=== PATIENT | female | born 1975 | race Caucasian/White ===

== ENCOUNTER → 2020-07-19 15:25 | Outpatient (CLI) | payer OTHER, SELFPAY ==
--- NOTE | ~2020-07-19 | MM_ITS ---
EXAMINATION: MM screening [facility] BI w odilia HISTORY: Screening mammogram TECHNIQUE: Craniocaudal and mediolateral oblique 3-D tomosynthesis images were obtained and synthetic 2-D images were generated. CAD analysis was submitted and interpreted. COMPARISON: 04/11/2019, 03/04/2018, 04/07/2016 BREAST PARENCHYMAL COMPOSITION: There are scattered areas of fibroglandular density. FINDINGS: There is no evidence of suspicious mass, calcification, or architectural distortion to sugg est malignancy in either breast. Decrease in breast size is related to interval weight loss. There guerra s been no suspicious interval change. IMPRESSION: 1. No mammographic evidence of malignancy. 2. Recommend routine screening mammography in one year. BI-RADS Category 1: Negative Reviewed, dictated and finalized at location A. ER JOINTER
== END ==
PROVIDERS: Visit Provider Nurse Practitioner
DX: Z12.31 Encounter for screening mammogram for malignant neoplasm of breast (principal)
CPT/HCPCS: 77063; 77067

== ENCOUNTER → 2021-10-04 16:08 | Outpatient (CLI) | payer BC, SELFPAY ==
--- NOTE | ~2021-10-04 | MM_ITS ---
EXAMINATION: MM screening [facility] BI w odilia HISTORY: Screening mammogram TECHNIQUE: Craniocaudal and mediolateral oblique 3-D tomosynthesis images were obtained and synthetic 2-D images were generated. CAD analysis was submitted and interpreted. COMPARISON: 07/2020, 04/11/2019, 03/12/2018 bilateral screening mammogram examinations BREAST PARENCHYMAL COMPOSITION: There are scattered areas of fibroglandular density. FINDINGS: There is no evidence of suspicious mass, calcification, or architectural distortion to sugg est malignancy in either breast. There has been no suspicious interval change. IMPRESSION: 1. No mammographic evidence of malignancy. 2. Recommend routine screening mammography in one year. BI-RADS Category 1: Negative Reviewed, dictated and finalized at location A.
== END ==
PROVIDERS: Visit Provider Obstetrics & Gynecology Gynecology
DX: Z12.31 Encounter for screening mammogram for malignant neoplasm of breast (principal)
CPT/HCPCS: 77063; 77067

== ENCOUNTER → 2022-04-05 14:51 | Outpatient (CLI) | payer BC, SELFPAY ==
--- NOTE | ~2022-04-05 | US_ITS ---
EXAMINATION: US pelvic complete DATE: 04/05/2022 15:13 INDICATION: ABN UTERINE BLEEDING TECHNIQUE: Multiple transabdominal sonographic images of the pelvis were obtained. COMPARISON: None. FINDINGS: Uterus: 9.8 x 4.8 x 5.7 cm. IUD, normally positioned within the uterus. Endometrial complex measures 5 mm. Right Ovary: 2.9 x 1.6 x 2.3 cm. Vascular flow is present. Left Ovary: 3.2 x 1.9 x 1.8 cm. Vascular flow is present. There is no free fluid in the pelvis. IMPRESSION: IUD, in good position. Otherwise unremarkable pelvic sonogram findings. Reviewed, dictated and finalized at location K.
== END ==
PROVIDERS: PCP Nurse Practitioner; Visit Provider Nurse Practitioner
DX: N93.8 Other specified abnormal uterine and vaginal bleeding (principal); Z97.5 Presence of (intrauterine) contraceptive device
CPT/HCPCS: 76856

== ENCOUNTER → 2022-06-10 10:26 | Outpatient (CLI) | payer BC, SELFPAY ==
--- NOTE | ~2022-06-10 | MR_ITS ---
EXAMINATION: MR knee RT wo con DATE: 06/10/2022 11:23 INDICATION: Anterior and medial right knee pain. TECHNIQUE: Magnetic resonance imaging (MRI) of the right knee was performed without intravenous contr ast. Sequences included axial PD-weighted FS FSE, coronal PD-weighted FSE and PD-weighted FS FSE, sag ittal PD-weighted FSE, and sagittal T2-weighted FS FSE. COMPARISON: Right knee radiographs 04/14/2022 FINDINGS: Medial compartment: Medial meniscus is normal. There is shallow partial-thickness cartilage loss of tibial condyle. There is partial-thickness cartilage loss of femoral condyle, deep at the medial articular surface. Osteop hytes are noted. Lateral compartment: Lateral meniscus is normal. There is cartilage surface irregularity of tibial condyle. There is an os teochondral lesion of lateral femoral condyle involving the central articular surface with cortical i ndentation, subchondral cysts, and partial thickness cartilage loss. There is deep partial thickness cartilage loss of femoral condyle involving the central articular surface. Osteophytes are noted. Patellofemoral compartment: There is full-thickness cartilage loss of patellar lateral facet with intra-articular osteophyte. The re is shallow partial-thickness cartilage loss of patellar lateral facet. There is partial-thickness cartilage loss of trochlea. There is full-thickness cartilage fissuring of central and lateral trochl ea. Marginal osteophytes are noted. Ligaments and tendons: There is a partial tear of anterior cruciate ligament. Posterior cruciate ligament is normal. There a re changes of prior sprains of medial collateral ligament and fibular collateral ligament characteriz ed increased signal intensity proximally. There is mild patellar tendinopathy. Fluid: There is a moderate-sized knee joint effusion. There is trace fluid in a Davila's cyst. There is mild prepatellar and superficial infrapatellar bursitis. IMPRESSION: 1. Severe chondrosis of patellofemoral compartment and moderate chondrosis of medial and lateral comp artments. 2. Partial tear of anterior cruciate ligament. 3. Moderate-sized knee joint effusion. Reviewed, dictated and finalized at location A. IDENTIAL SECRETARY IMPRESSION: 1. Severe chondrosis of patellofemoral compartment and moderate chondrosis of m edial and lateral compartments. 2. Partial tear of anterior cruciate ligament. 3. Moderate-sized knee joint effusion.
== END ==
PROVIDERS: PCP Physician Assistant Medical; Visit Provider Physician Assistant Medical
DX: M25.561 Pain in right knee (principal); M22.2X1 Patellofemoral disorders, right knee; S83.511A Sprain of anterior cruciate ligament of right knee, initial encounter; M25.461 Effusion, right knee
CPT/HCPCS: 73721

== ENCOUNTER 2022-10-13 00:34 | Day surgery (SDC) | payer BC, SELFPAY ==
[2022-09-29 14:12] VITALS: BMI 32.2
--- NOTE | 2022-10-12 14:15 | PM.HPGS ---
History of Present Illness History of Present Illness Consent: Risks, benefits, and alternatives have been discussed and questions answered. Patient agrees to proceed with procedure. Chief complaint: neoplasm screening Narrative: Nicolasa Alva is a 47 year old female Referred for colon cancer screening Review of Systems Review of Systems: All systems reviewed & are unremarkable except as noted in HPI and below PMFSH Past Medical History Medical History Acute otitis externa Essential (primary) hypertension Fall Fatigue Hyperlipidemia Morbid (severe) obesity due to excess calories Tailbone injury URI, acute Family History Family History Father Hypertension Mother Hypertension Family history of diabetes mellitus in first degree relative Sibling Hypertension Social History Social History Smoking status: Never smoker Alcohol intake: never Alcohol use details: rarely Substance use: never Substance use type: does not use Living arrangements: with family Occupation/Education: occupation Gender identity (if verbalized by the patient): Female Sexual Orientation (if Verbalized by the Patient): Straight or Heterosexual Spiritual care concerns: No Meds Home Medications and Allergies Home Medications Medication Instructions Recorded Confirmed Type losartan 50 mg tablet 50 mg PO DAILY #90 tabs 05/26/22 10/13/22 Rx Allergies Allergy/AdvReac Type Severity Reaction Status Date / Time No Known Allergies Allergy Mild Verified 10/13/22 08:05 Exam Resp: Auscultation: clear to auscultation bilaterally Cardio: Rate: regular rate Rhythm: regular rhythm GI: GI Palp: Yes Soft to palpation and No Tenderness to palpation present (GI) Assessment and Plan Assessment and plan (1) Colon cancer screening: Code(s): Z12.11 - Encounter for screening for malignant neoplasm of colon Status: Acute Assessment and Plan: Colonoscopy with possible biopsy or polypectomy or cautery or injection of substances.
[2022-10-13 08:08] VITALS: BP 154/73; PULSE 57; RESP 16; TEMP 36.7; O2SAT 100
[2022-10-13] MEDS: LACTATED RINGERS 1,000 ML 150 ML IV CONT (08:20)
--- NOTE | 2022-10-13 08:24 | P.PNAN_ITS ---
Anes - Initial Pre Proc Eval Procedure: Operation Date: 10/13/22 09:00 Proposed Procedures p Screening Colonoscopy - Theo Verdugo MD Date/Time: 10/13/22 08:24 Surgeon: Theo Verdugo MD Pre Op Diagnosis: neoplasm screening Patient Data Age: 47 Gender: F Height: 1.75 m Weight: 97 kg Last Vital Signs Temp 36.7 C 10/13/22 08:08 Pulse 57 L 10/13/22 08:08 Resp 16 10/13/22 08:08 BP 154/73 H 10/13/22 08:08 Pulse Ox 100 10/13/22 08:08 O2 Del Method Room Air 10/13/22 08:08 Allergies Allergy/AdvReac Type Severity Reaction Status Date / Time No Known Allergies Allergy Mild Verified 10/13/22 08:05 Home Medications Medication Instructions Recorded Confirmed Type losartan 50 mg tablet 50 mg PO DAILY #90 tabs 05/26/22 10/13/22 Rx Patient hx anesthesia problems: none Family hx anesthesia problems: none Results Review: All pre-operative results and documents have been reviewed as part of the pre-operative evaluation. COUNTS INCLUDE 234 BEDS AT THE [facility] Past Medical History Medical History Acute otitis externa Essential (primary) hypertension Fall Fatigue Hyperlipidemia Morbid (severe) obesity due to excess calories Tailbone injury URI, acute Family History Family History Father Hypertension Mother Hypertension Family history of diabetes mellitus in first degree relative Sibling Hypertension Social History Social History Smoking status: Never smoker Alcohol intake: never Alcohol use details: rarely Substance use: never Substance use type: does not use Living arrangements: with family Occupation/Education: occupation Gender identity (if verbalized by the patient): Female Sexual Orientation (if Verbalized by the Patient): Straight or Heterosexual Spiritual care concerns: No Anes - Eval Final PreProcedure Day of Procedure 10/13/22 08:24 Patient weight: overweight Heart: regular rate and rhythm Lungs: clear to auscultation Airway: Mallampati scale class II Neurological: alert and oriented Last oral intake: >/= 8 hours ASA classification: II Emergent: no Anesthetic plan: proceed Anesthesia type and monitoring: general GIVS and standard monitoring Results Review: All pre-operative results and documents have been reviewed as part of the pre- operative evaluation. Informed Consent: The patient's anesthetic plan and its attendant risks and benefits were discussed with the patient/family/POA. Questions were solicited and answers provided to the satisfaction of the patient/family/POA.
[2022-10-13 09:14] VITALS: BP 124/53; PULSE 58; RESP 17; O2SAT 100
[2022-10-13 09:24] VITALS: BP 121/56; PULSE 57; RESP 20; O2SAT 100
[2022-10-13 09:34] VITALS: BP 126/72; PULSE 66; RESP 18; O2SAT 100
== END 2022-10-13 09:41 | disposition home or self-care (01) ==
PROVIDERS: PCP Physician Assistant Medical; Visit Provider Internal Medicine Gastroenterology
PROC: 0DJD8ZZ Inspection of Lower Intestinal Tract, Via Natural or Artificial Opening Endoscopic (ICD-10-PCS; CPT 45378; principal; 2022-10-13 09:00)
DX: Z12.11 Encounter for screening for malignant neoplasm of colon (principal); D12.2 Benign neoplasm of ascending colon; I10 Essential (primary) hypertension
CPT/HCPCS: 45380; 88305; J2704; J7120

== ENCOUNTER → 2022-11-17 15:17 | Outpatient (CLI) | payer BC, SELFPAY ==
--- NOTE | ~2022-11-17 | MM_ITS ---
EXAMINATION: MM screening [facility] BI w odilia HISTORY: Screening mammogram TECHNIQUE: Craniocaudal and mediolateral oblique 3-D tomosynthesis images were obtained and synthetic 2-D images were generated. CAD analysis was submitted and interpreted. COMPARISON: 10/04/2021, 07/19/2020, 04/11/2019 BREAST PARENCHYMAL COMPOSITION: There are scattered areas of fibroglandular density. FINDINGS: No suspicious mass, calcification, or architectural distortion are identified in either brittney ast to suggest malignancy. There has been no suspicious interval change. IMPRESSION: 1. No mammographic evidence of malignancy. 2. Recommend routine screening mammography in one year. BI-RADS Category 1: Negative Reviewed, dictated and finalized at location A.
== END ==
PROVIDERS: PCP Nurse Practitioner; Visit Provider Nurse Practitioner
DX: Z12.31 Encounter for screening mammogram for malignant neoplasm of breast (principal)
CPT/HCPCS: 77063; 77067

== ENCOUNTER → 2023-04-13 09:45 | Outpatient (CLI) | payer BC, SELFPAY ==
--- NOTE | ~2023-04-13 | US_ITS ---
EXAMINATION: US pelvic complete DATE: 04/13/2023 10:04 INDICATION: Pelvic pain Comparison:04/05/2022 TECHNIQUE: Multiple transabdominal sonographic images of the pelvis performed. FINDINGS: The uterus measures 11.3 x 4.7 x 5.5 cm. There is an IUD present in the in the endometrium. The endometrial complex measures 5.5 mm. The right ovary measures 4.5 x 3.2 x 4.1 cm and the left ovary measures 4.6 x 1.7 x 3.8 cm. There is a 2.7 cm right ovarian cyst. There are small follicles in each ovary. Normal doppler signal in both o varies. There is no free fluid in the pelvis. There are no abnormal masses seen on either side. IMPRESSION: 1. Right ovarian cyst measuring 2.7 cm. 2: IUD in expected position in the endometrium. Reviewed, dictated and finalized at location B.
== END ==
PROVIDERS: PCP Nurse Practitioner; Visit Provider Nurse Practitioner
DX: R10.2 Pelvic and perineal pain (principal); N83.201 Unspecified ovarian cyst, right side; N83.202 Unspecified ovarian cyst, left side; Z97.5 Presence of (intrauterine) contraceptive device
CPT/HCPCS: 76856

== ENCOUNTER 2023-06-05 15:15 | Outpatient (CLI) | payer BC, SELFPAY ==
--- NOTE | ~2023-06-05 | US_ITS ---
EXAMINATION: US pelvic complete DATE: 06/05/2023 15:38 INDICATION: Follow-up right ovarian cyst Comparison:Ultrasound dated 04/13/2023 TECHNIQUE: Multiple transabdominal sonographic images of the pelvis performed. FINDINGS: The uterus measures 9.2 x 5.3 x 5.8 cm. IUD is present in the endometrium. The endometrial complex measures 7 mm. The right ovary measures 2.4 x 1.5 x 2.2 cm and the left ovary measures 2.6 x 1.2 x 1.9 cm. There ar e small follicles in each ovary. Normal doppler signal in both ovaries. There is no free fluid in the pelvis. There are no abnormal masses seen on either side. IMPRESSION: 1. Unremarkable pelvic ultrasound. Reviewed, dictated and finalized at location L. THCARE RECEPTIONIST
== END 2023-06-05 15:16 ==
LOC: MICIMG 15:16
PROVIDERS: PCP Obstetrics & Gynecology Gynecology; Visit Provider Obstetrics & Gynecology Gynecology
DX: N83.201 Unspecified ovarian cyst, right side (principal)
CPT/HCPCS: 76856

== ENCOUNTER 2023-11-20 15:52 | Outpatient (CLI) | payer BC, SELFPAY ==
--- NOTE | ~2023-11-20 | MM_ITS ---
EXAMINATION: MM screening [facility] BI w odilia HISTORY: Screening mammogram TECHNIQUE: Craniocaudal and mediolateral oblique 3-D tomosynthesis images were obtained and synthetic 2-D images were generated. CAD analysis was submitted and interpreted. COMPARISON: 11/17/2022, 10/04/2021 bilateral screening mammogram examinations BREAST PARENCHYMAL COMPOSITION: There are scattered areas of fibroglandular density. FINDINGS: There is no evidence of suspicious mass, calcification, or architectural distortion to sugg est malignancy in either breast. There has been no suspicious interval change. IMPRESSION: 1. No mammographic evidence of malignancy. 2. Recommend routine screening mammography in one year. BI-RADS Category 1: Negative Reviewed, dictated and finalized at location B.
== END 2023-11-20 15:53 ==
LOC: MICIMG 15:55
PROVIDERS: PCP Obstetrics & Gynecology Gynecology; Visit Provider Obstetrics & Gynecology Gynecology
DX: Z12.31 Encounter for screening mammogram for malignant neoplasm of breast (principal)
CPT/HCPCS: 77063; 77067

== ENCOUNTER 2024-11-21 15:46 | Outpatient (CLI) | payer BC, SELFPAY ==
--- NOTE | ~2024-11-21 | MM_ITS ---
EXAMINATION: MM screening [facility] BI w odilia HISTORY: Screening TECHNIQUE: Craniocaudal and mediolateral oblique 3-D tomosynthesis images were obtained and synthetic 2-D images were generated. CAD analysis was submitted and interpreted. COMPARISON: Comparison to multiple prior studies sequentially, with oldest reviewed study dated 03/12. BREAST PARENCHYMAL COMPOSITION: Not dense: There are scattered areas of fibroglandular density. FINDINGS: The right breast is stable without evidence for malignancy. There is a new small focal mass upper inner quadrant of the left breast, anterior third. IMPRESSION: 1. New small left breast mass, upper inner quadrant, anterior third. 2. Additional mammographic views and possible breast ultrasound are recommended. BI-RADS Category 0: Incomplete: Needs additional imaging evaluation. Reviewed, dictated and finalized at location A. IMPRESSION: 1. New small left breast mass, upper inner quadrant, anterior third. 2. Additional mammographic views and possible breast ultrasound are recommended . BI-RADS Category 0: Incomplete: Needs additional imaging evaluation.
== END 2024-11-21 15:47 | disposition home or self-care (01) ==
LOC: MICIMG 15:47
PROVIDERS: PCP Physician Assistant Medical; Visit Provider Obstetrics & Gynecology Gynecology
DX: Z12.31 Encounter for screening mammogram for malignant neoplasm of breast (principal); R92.8 Other abnormal and inconclusive findings on diagnostic imaging of breast
CPT/HCPCS: 77063; 77067

== ENCOUNTER 2024-12-12 10:47 | Outpatient (CLI) | payer BC, SELFPAY ==
--- NOTE | ~2024-12-12 | MMUS_ITS ---
EXAMINATION: MM diagnostic danielle LT w odilia, US breast LT complete HISTORY: Follow-up left breast mass. TECHNIQUE: Additional 3-D tomosynthesis images of the left breast were performed and synthetic 2-D im ages were generated. CAD analysis was submitted and interpreted. High resolution breast ultrasound wa s performed. COMPARISON: Comparison to multiple prior studies sequentially, with oldest reviewed study dated 04/11. BREAST PARENCHYMAL COMPOSITION: Not dense: There are scattered areas of fibroglandular density. FINDINGS: MAMMOGRAPHIC FINDINGS: There is a persistent mass medial aspect of the left breast at approximately 9:00 position, anterior third. There are no suspicious calcifications or architectural distortion. ULTRASOUND: Complete US of all 4 quadrants of the left breast/s and retroareolar region was reviewed. At 10:00, 3 cm from the nipple there is a 5 mm cyst, likely corresponding to the mammographic finding. In the hernandez bareolar location there is a 3 mm cyst. No suspicious sonographic abnormalities to suggest malignancy . IMPRESSION: 1. No evidence for malignancy in the left breast. 2. Routine yearly screening mammogram and regular clinical breast examination are recommended. BI-RADS Category 2: Benign finding(s). Reviewed, dictated and finalized at location A. IMPRESSION: 1. No evidence for malignancy in the left breast. 2. Routine yearly screening mammogram and regular clinical breast examination a re recommended. BI-RADS Category 2: Benign finding(s).
--- OUTSIDE RECORDS SUMMARY | 2024-12-12 10:59 | XMS_ITS | Encounter Summary ---
Author Organization [facility] Address [address] [place] [address] Care Team Providers Care Unix System Administrator Name Role Phone Isela Villaseñor Primary Care Provider Encounter Details Date Type Department Care Team (Late st Contact Info) Description 12/23/[address] [facility] [address] [facility] [place] [address] Avery Salas MD [address] [facility] [place] [address] Social History Tobacco Use Types Packs/Day Years Used Date Smoking Tobacco: Never Assessed Comments Unknown Sex and Gender Information Value Date Recorded Sex Assigned at Not on file Legal Sex Female 6:46 AM CDT Gender Identity Not on file Sexual Orientation Not on file documented as of this encounter Plan of Treatment Not on file documented as of this encounter Procedures Procedure Name Priority Date/Time Associated Diagnosis Comments DERMATOPATHOLOGY Routine 12/22/2021 3:33 AM CDT documented in this encounter Results * DERMATOPATHOLOGY (12/22/2021 3:33 AM CDT) Case Report Dermatopathology Report Case: [id number] Authorizing Provider: Avery Salas MD Collected: 12/22/2021 03:33 AM Ordering Location: [facility] Received: 12/23/2021 07:33 AM Pathologist: Abigail Comer MD Specimen: Skin, left mid back 2 11:16 AM CDT DERMATOPATHOLOGY LABORATORY Final Diagnosis Specimen A. SKIN, left mid back: INTRADERMAL MELANOCYTIC NEVUS (D22.5) 2 11:16 AM CDT DERMATOPATHOLOGY LABORATORY at 1116 CDT Clinical History Irritated Nevus vs. Other Path# [id number] 2 11:16 AM CDT DERMATOPATHOLOGY LABORATORY Gross Description Specimen A: Received is one formalin filled container labeled with the patient's name and designated left mid back. The specimen consists of a shave biopsy measuring [id number]. Jar 0. 2 11:16 AM CDT DERMATOPATHOLOGY LABORATORY Microscopic Description Specimen A. SKIN, left mid back: There are nests of cytologically bland melanocytes within the dermis that mature with depth. 2 11:16 AM CDT DERMATOPATHOLOGY LABORATORY Disclaimer An external and internal positive and negative controls are appropriate for the histochemical, immunohistochemical and immunofluorescence stain(s) in this case (if any), except where stated explicitly. The performance characteristics of the stain(s) cited in this report were developed and its performance characteristic determined by the Dermatopathology Laboratory at [facility], directed by Dr. Prosper Toney. These tests need not be, and therefore are not, approved by the [place] Food and Drug Administration. The tests are used for clinical purposes. Billing Codes Specimen Charges Stain Charges 64169 1 2 11:16 AM CDT DERMATOPATHOLOGY LABORATORY Embedded Images 2 11:16 AM CDT DERMATOPATHOLOGY LABORATORY Pathology/Cytolo gy TISSUE SPECIMEN FROM SKIN / Unknown 12/22/2021 3:33 AM CDT 12/23/2021 7:33 AM CDT us Avery Salas MD LAB - PATHOLOGY/CYTOLOGY ORDER MIRIAN Final Result DERMATOPATHOLOGY LABORATORY [facility] - Department of Dermatology [facility] Medicine [address] [place] [address], [address] [phone] documented in this encounter Visit Diagnoses Not on filedocumented in this encounter Care Teams Unix System Administrator Relationship Specialty Start Date End Date Isela Villaseñor PA [address] [place] [id number] PCP - General 11/03/22 documented as of this encounter
--- OUTSIDE RECORDS SUMMARY | 2024-12-12 10:59 | XMS_ITS | Referral Summary ---
Author Organization [facility] Address [facility] [place] [address] Care Team Providers Care Director Of Market Intelligence Name Role Phone Isela Villaseñor Primary Care Provider [phone] Allergies No known active allergies Medications losartan (COZAAR) 50 mg tablet Take 1 tablet (50 mg total) by mouth daily 2 Active levonorgestreL (MIRENA) IUD by intrauterine route Active spironolactone (ALDACTONE) 100 mg tablet 4 Active meloxicam (MOBIC) 15 mg tablet Take 1 daily for 5-7 days, then take 1 daily as needed. 30 tablet 1 4 Active Active Problems Problem Noted Date Diagnosed Date Acute pain of right knee 06/22/2022 Social History Tobacco Use Types Packs/Day Years Used Date Smoking Tobacco: Never Cigarettes Passive Smoke Exposure: Never Smokeless Tobacco: Never Tobacco Cessation:Counseling Given: Not Answered Personal Safety Answer Date Recorded Getting School Help Needed Not on file 07/22 Comments Unknown Sex and Gender Information Value Date Recorded Sex Assigned at Not on file Legal Sex Female 9:47 AM KINDERGARTEN INSTRUCTIONAL ASSISTANT Gender Identity Not on file Sexual Orientation Not on file Last Filed Vital Signs Vital Sign Reading Time Taken Comments Blood Pressure - - Pulse - - Temperature - - Respiratory Rate - - Oxygen Saturation - - Inhaled Oxygen Concentration - - Weight 94.3 kg (208 lb) 06/22/2022 7:55 AM KINDERGARTEN INSTRUCTIONAL ASSISTANT Height 175.3 cm (5' 9) 06/22/2022 7:55 AM KINDERGARTEN INSTRUCTIONAL ASSISTANT Body Mass Index 30.72 06/22/2022 7:55 AM KINDERGARTEN INSTRUCTIONAL ASSISTANT Plan of Treatment Not on file Insurance ANTHEM ACCESS CHOICE ANTHEM ACCESS CHOICE Care Teams Director Of Market Intelligence Relationship Specialty Start Date End Date Isela Villaseñor PA [address] [place] [id number] PCP - General Family Practice 06/14/22
--- OUTSIDE RECORDS SUMMARY | 2024-12-12 10:59 | XMS_ITS | Clinical Summary ---
Author Organization [facility] Address [address] [place] [id number] Care Team Providers Care Nicker And Breaker Name Role Phone Isela Villaseñor Primary Care Provider [phone] Allergies No known active allergies Medications losartan [...] Date Acute pain of right knee 06/22/2022 Medical History Medical History Date Comments Hypertension 2004 Family History Medical History Relation Name Comments Hypertension Brother Taj Knapp Hypertension Father Lei Knapp Memory loss Maternal Grandmother Cristina Gerber Diabetes Mother Shannan Knapp Relation Name Status Comments Brother Taj Guardadosel Father Lei Guardadosel Maternal Grandmother Cristina Gerber Mother Shannan Knapp Social History Tobacco Use Types Packs/Day Years Used Date Smoking Tobacco: Never Cigarettes Passive Smoke Exposure: Never Smokeless Tobacco: Never Tobacco Cessation:Counseling Given: Not Answered Personal Safety Answer Date Recorded Getting School Help Needed Not on file 07/22 Comments Unknown Sex and Gender Information Value Date Recorded Sex Assigned at Not on file Legal Sex Female 9:47 AM CORE MICROARCHITECT Gender Identity Not on file Sexual Orientation Not on file Obstetrics History Last Filed Vital Signs Vital Sign Reading Time Taken Comments Blood Pressure - - Pulse - - Temperature - - Respiratory Rate - - Oxygen Saturation - - Inhaled Oxygen Concentration - - Weight 94.3 kg (208 lb) 06/22/2022 7:55 AM CORE MICROARCHITECT Height 175.3 cm (5' 9) 06/22/2022 7:55 AM CORE MICROARCHITECT Body Mass Index 30.72 06/22/2022 7:55 AM CORE MICROARCHITECT Plan of Treatment Health Maintenance Due Date Last Done Comments Breast Cancer Screening-Mammogram 1976 Cervical Cancer Screening 1976 Colon Cancer Screening-Colonoscopy 1976 Depression Screening 1976 Hepatitis C Screening 1976 DTaP/Tdap/Td Vaccine (1 - Tdap) 1987 Hepatitis B Screening 1994 Regular Well Visit/Exam 18-64 1994 Covid-19 Vaccine (2023-2 5 season) 2024 06/30/2021, 10/18/2020, 09/26/2020 Influenza Vaccine (Season Ended) 2025 04/18/2022, 04/20/2021 Pneumococcal vaccine <65 Aged Out No longer eligible based on patient's age to complete this topic Insurance [employer] Care Teams Nicker And Breaker Relationship Specialty Start Date End Date Isela Villaseñor PA [address] [place] [id number] PCP - General Family Practice 06/14/22
--- OUTSIDE RECORDS SUMMARY | 2024-12-12 10:59 | XMS_ITS | Clinical Summary ---
Author Organization [facility] [employer] Address [address] [facility] [place] [address] Care Team Providers Care Centrifuge Operator Name Role Phone Isela Villaseñor Primary Care Provider Source Comments [facility],non-owned Affiliates and Associated Physician Practices is amultiple site organization consisting of ambulatory clinics and hospital sitesin [place], [place], [place] and [place]. This disclosure is being madepursuant to the Care Everywhere program and may not contain all information available regarding this patient. Last updated 18.[facility] [employer] Social History Tobacco Use Types Packs/Day Years Used Date Smoking Tobacco: Never Assessed Comments Unknown Sex and Gender Information Value Date Recorded Sex Assigned at Not on file Legal Sex Female 6:46 AM CDT Gender Identity Not on file Sexual Orientation Not on file Plan of Treatment Health Maintenance Due Date Last Done Comments COLOGUARD (AGES 45-75) - COL ON CA SCREENING 1976 COLON MONITORING 1976 COLONOSCOPY - COLON CA SCREENING 1976 CT COLONOGRAPHY - COLON CA SCREENING 1976 Colorectal Cancer Screening 1976 FIT - COLON CA SCREENING 1976 FLEX SIG - COLON CA SCREENING 1976 LIPID TESTING 1976 MAMMOGRAM 1976 PAP SMEAR 1976 HIV SCREENING 1991 HEPATITIS C SCREENING 08/19/1994 DTAP/TDAP/TD VACCINES (1 - Tdap) 1995 HEPATITIS B VACCINE (1 of 3 - 19+ 3-dose series) 1995 COVID-19 VACCINE ( - 2023-2 5 season) 2024 DEPRESSION SCREENING 07/16/2024 INFLUENZA VACCINE (Season Ended) 2025 ZOSTER VACCINE (1 of 2) 2026 HIB VACCINE Aged Out No longer eligi ble based on patient's age to complete this topic HPV VACCINE Aged Out No longer eligi ble based on patient's age to complete this topic MENINGOCOCCAL (Group B) VACC INE SHARED DECISION-MAKING Aged Out No longer eligibl e based on patient's age to complete this topic MENINGOCOCCAL GROUPS A/C/Y/W VACCINE Aged Out No longer eligible b ased on patient's age to complete this topic PNEUMOCOCCAL VACCINE Aged Out No long er eligible based on patient's age to complete this topic Insurance Care Teams Centrifuge Operator Relationship Specialty Start Date End Date Isela Villaseñor PA [address] [place] [phone] PCP - General 11/03/22
--- OUTSIDE RECORDS SUMMARY | 2024-12-12 10:59 | XMS_ITS | Clinical Summary ---
Author Organization [facility] Address [address] [place] [phone] Care Team Providers Care Specialized Language Instructor Name Role Phone Unavailable Primary Care Provider Unavailabl e Immunizations Immunization Administration Dates Next Due INFLUENZA VACCINE QUADRIVALENT 6 MOS UP PF IM ,04/20/2021 Social History Tobacco Use Types Packs/Day Years Used Date Smoking Tobacco: Never Assessed Comments Unknown Sex and Gender Information Value Date Recorded Sex Assigned at Not on file Legal Sex Female 4:42 PM CDT Gender Identity Not on file Sexual Orientation Not on file Plan of Treatment Health Maintenance Due Date Last Done Comments DTAP/TDAP/TD VACCINES (1 - Tdap) 1995 HEPATITIS B VACCINES (1 of 3 - 19+ 3-dose series) 1995 HPV/Cotest (21-29) 1997 CERVICAL CANCER SCREENING 2006 HPV/Cotest (30-65) 2006 PAP SMEAR 2006 BREAST CANCER SCREENING 2016 COLORECTAL SCREENING 2021 Colorectal Cancer Screening 2021 FIT-DNA Q 3 years 2021 FIT/FOBT Q 1 year 2021 Flex Sig/CT Colonography Q 5 years 2021 INFLUENZA VACCINE (#1) 2024 04/18/2022, 2020 Insurance [employer] [facility]
== END 2024-12-12 10:48 | disposition home or self-care (01) ==
LOC: ANHIMG 10:49
PROVIDERS: PCP Physician Assistant Medical; Visit Provider Obstetrics & Gynecology Gynecology
DX: N63.22 Unspecified lump in the left breast, upper inner quadrant (principal)
CPT/HCPCS: 76641; 76642; 77061; 77065; G0279

== ENCOUNTER 2024-12-31 08:29 | Outpatient (CLI) | payer BC, SELFPAY ==
--- NOTE | 2024-12-31 08:36 | ECG_ITS ---
Test Date: 2024-12-31 08:59:09 Measurements Intervals [place] Rate: 58 P: -10 WV: 148 QRS: 1 QRSD: 107 T: 11 QT: 419 QTc: 412 Interpretive Statements SINUS BRADYCARDIA BORDERLINE R WAVE PROGRESSION, ANTERIOR LEADS CONSIDER INFERIOR INFARCT, AGE INDETERMINATE ABNORMAL ECG No previous ECG available for comparison Electronically Signed On 12-31-2024 09:08:25 CDT by Mj Rahman D.O.
--- OUTSIDE RECORDS SUMMARY | 2024-12-31 08:51 | XMS_ITS | Clinical Summary ---
Author Organization [facility] Address [address] [place] [phone] Care Team Providers Care Attendant Honor Bar Name Role Phone Unavailable Primary Care Provider [...] INFLUENZA VACCINE (#1) 2024 04/18/2022, 2020 Insurance [employer] [facility]
--- OUTSIDE RECORDS SUMMARY | 2024-12-31 08:51 | XMS_ITS | Clinical Summary ---
Author Organization [facility] Address [address] [facility] [place] [address] Care Team Providers Care Mounted Police Officer Name Role Phone Isela Villaseñor Primary Care Provider Source Comments [facility],non-owned Affiliates and Associated Physician Practices is amultiple site organization consisting of ambulatory clinics and hospital sitesin [place], [place], [place] and [place]. This disclosure is being madepursuant to the Care Everywhere program and may not contain all information available regarding this patient. Last updated 18.[facility] Social History Tobacco Use Types Packs/Day Years [...] to complete this topic Insurance Care Teams Mounted Police Officer Relationship Specialty Start Date End Date Isela Villaseñor PA [address] [place] [phone] PCP - General 11/03/22
--- OUTSIDE RECORDS SUMMARY | 2024-12-31 08:51 | XMS_ITS | Referral Summary ---
Author Organization [facility] Address [facility] [place] [address] Care Team Providers Care Prosthetics Assistant Name Role Phone Isela Villaseñor Primary Care Provider [phone] Allergies No known active allergies Medications losartan [...] on file Legal Sex Female 9:47 AM TOE STRIPPER Gender Identity Not on file Sexual Orientation Not on file Last Filed Vital Signs Vital Sign Reading Time Taken Comments Blood Pressure - - Pulse - - Temperature - - Respiratory Rate - - Oxygen Saturation - - Inhaled Oxygen Concentration - - Weight 94.3 kg (208 lb) 06/22/2022 7:55 AM TOE STRIPPER Height 175.3 cm (5' 9) 06/22/2022 7:55 AM TOE STRIPPER Body Mass Index 30.72 06/22/2022 7:55 AM TOE STRIPPER Plan of Treatment Not on file Insurance [employer] ACCESS CHOICE ANTHEM ACCESS CHOICE Care Teams Prosthetics Assistant Relationship Specialty Start Date End Date Isela Villaseñor PA [address] [place] [phone] PCP - General Family Practice 06/14/22
--- OUTSIDE RECORDS SUMMARY | 2024-12-31 08:52 | XMS_ITS | Encounter Summary ---
Author Organization [facility] Address [address] [facility] [place] [address] Care Team Providers Care Application Technician Name Role Phone Isela Villaseñor Primary Care Provider Encounter Details Date Type Department Care Team (Late st Contact Info) Description 12/23/2021 Lab Requisition [facility] [address] [facility], [place] [address] Avery Salas MD [address] [facility] [place] [address] Social History Tobacco Use Types [...] AM CDT) Case Report Dermatopathology Report Case: [id number] Authorizing Provider: Avery Salas MD Collected: 12/22/2021 03:33 AM Ordering Location: [facility] Received: 12/23/2021 07:33 AM Pathologist: Abigail Comer MD Specimen: Skin, left mid back 2 11:16 AM CDT DERMATOPATHOLOGY LABORATORY Final Diagnosis Specimen A. SKIN, left mid back: INTRADERMAL MELANOCYTIC NEVUS (D22.5) 2 11:16 AM CDT DERMATOPATHOLOGY LABORATORY at 1116 CDT Clinical History Irritated Nevus vs. Other Path# [id number] 2 11:16 AM CDT DERMATOPATHOLOGY LABORATORY Gross Description Specimen A: Received is one formalin filled container labeled with the patient's name and designated left mid back. The specimen consists of a shave biopsy measuring [id number]. Jar 0. 2 11:16 AM CDT DERMATOPATHOLOGY [...] characteristic determined by the Dermatopathology Laboratory at [facility], directed by Dr. Prosper Toney. These tests need not be, and therefore are not, approved by the [place] Food and Drug Administration. The tests are used for clinical purposes. Billing Codes Specimen Charges Stain Charges 27502 1 2 11:16 AM CDT DERMATOPATHOLOGY LABORATORY Embedded Images 2 11:16 AM CDT DERMATOPATHOLOGY LABORATORY Pathology/Cytolo gy TISSUE SPECIMEN FROM SKIN / Unknown 12/22/2021 3:33 AM CDT 12/23/2021 7:33 AM CDT us Avery Salas MD LAB - PATHOLOGY/CYTOLOGY ORDER MIRIAN Final Result DERMATOPATHOLOGY LABORATORY [facility] - Department of Dermatology [facility] Medicine [address] [place] [address], [address] [phone] documented in this encounter Visit Diagnoses Not on filedocumented in this encounter Care Teams Application Technician Relationship Specialty Start Date End Date Isela Villaseñor PA [address] [place] [phone] PCP - General 11/03/22 documented as of this encounter
--- OUTSIDE RECORDS SUMMARY | 2024-12-31 08:52 | XMS_ITS | Clinical Summary ---
Author Organization [facility] Address [address] [place] [address] Care Team Providers Care School Bus Mechanic Name Role Phone Isela Villaseñor Primary Care Provider [phone] Allergies No known active allergies Medications losartan [...] on file Legal Sex Female 9:47 AM COUNSELING SERVICES DIRECTOR Gender Identity Not on file Sexual Orientation Not on file Obstetrics History Last Filed Vital Signs Vital Sign Reading Time Taken Comments Blood Pressure - - Pulse - - Temperature - - Respiratory Rate - - Oxygen Saturation - - Inhaled Oxygen Concentration - - Weight 94.3 kg (208 lb) 06/22/2022 7:55 AM COUNSELING SERVICES DIRECTOR Height 175.3 cm (5' 9) 06/22/2022 7:55 AM COUNSELING SERVICES DIRECTOR Body Mass Index 30.72 06/22/2022 7:55 AM COUNSELING SERVICES DIRECTOR Plan of Treatment Health Maintenance Due Date [...] patient's age to complete this topic Insurance [employer] CHOICE Care Teams School Bus Mechanic Relationship Specialty Start Date End Date Isela Villaseñor PA [address] [place] [phone] PCP - General Family Practice 06/14/22
[2024-12-31 10:20] LABS: Anion Gap 8 mmol/L (4-12); Blood Urea Nitrogen 15 mg/dL (7-17); Calcium 9.3 mg/dL (8.4-10.2); Carbon Dioxide 25 mmol/L (22-30); Chloride 103 mmol/L (98-107); Estimated Glomerular Filt Rate > 60; Glucose 84 mg/dL (65-110); Potassium 4.3 mmol/L (3.4-5.0); Sodium 136 mmol/L (137-145)
== END 2024-12-31 08:30 | disposition home or self-care (01) ==
LOC: ANHSURGERY 08:32
PROVIDERS: Anesthesiology; PCP Physician Assistant Medical; Visit Provider Podiatrist Foot & Ankle Surgery
DX: R94.31 Abnormal electrocardiogram [ECG] [EKG] (principal); I10 Essential (primary) hypertension; Z79.899 Other long term (current) drug therapy
CPT/HCPCS: 36415; 80048; 93005

== ENCOUNTER 2025-01-02 00:22 | Day surgery (SDC) | payer BC, SELFPAY ==
[2024-12-30 10:57] VITALS: BMI 33.3
--- NOTE | 2024-12-30 11:05 | PC.NURSE ---
Report to the Outpatient Waiting Room, entrance under the green pavilion located off [facility], at time _0930_ on date _[id number]_. Planned Procedure Time: _1130_.? Time changes happen often and if your time is changed the preop area will call you the afternoon before. - You and your visitor will be asked to self-screen and do not enter if you have any COVID symptoms. Please call surgeon if you need to reschedule. - A mask is optional within the hospital at this time. Patients may have clear liquids (water, carbonated beverages, clear teas, apple juice) until 3 hours prior to surgery with a maximum of 20 ounces. - No food from midnight until time of surgery and no smoking, or chewing tobacco (or any form of nicotine). No chewing gum, candy or mints. Take only the following medications with a SIP of water on the morning of surgery: ____None DO NOT STOP ANY OF YOUR OTHER PRESCRIPTION MEDICATIONS PRIOR TO SURGERY EXCEPT THE FOLLOWING Hold all vitamins and supplements for 3 days per anesthesiologist. Stop now. Medications to discontinue per physician Patient holding Semaglutide until after surgery. Last dose was 11-23-2024 Date to take last dose Please no make-up, nail chinese, hairspray, perfume, deodorant, or body powder the day of surgery.? No jewelry (including any body piercings) or valuables the day of surgery, leave them at home.? Please take a shower or bath the night before, or the morning of, surgery with an antibacterial soap.? Wear comfortable, loose fitting clothing.? - Jewelry must be removed prior to entering the operating room.? Rings and piercings that are not removed may be cut off. - The hospital will not accept responsibility for valuables.? - Please leave all valuables, including medications, at home the day of surgery. If you are going home after surgery, a licensed jeep driver must drive you home.? - NO public transportation without another adult if you receive anesthesia. - We recommend that an adult stay with you for 24 hours following discharge. - We also recommend that you do not drive, make important decision, drink alcoholic beverages, or take any drugs that were not prescribed by your health care provider for at least 24 hours after your discharge time. Follow any additional instructions given to you from your surgeon. Telephone instructions given to __Bobbi___and asked if any additional questions and then verbalized understanding. Patient advised to call surgeon office or pre surgery nurse liaison [phone] if any additional questions.
[2025-01-02] VITALS (11 sets, daily range): BP systolic 140–173; BP diastolic 67–91; PULSE 64–91; RESP 14–21; TEMP 36.3–36.9; O2SAT 96–100
--- NOTE | ~2025-01-02 | XR_ITS ---
EXAMINATION: XR surgery orthopedic DATE: 01/02/2025 13:18 INDICATION: Left foot surgery TECHNIQUE: 2 images of the left hindfoot were obtained during procedure performed by Dr. Sanchez. Ra diologist was not present for the imaging or procedure. The amount of fluoroscopy time used during th is procedure was 0.3 minutes. Total DAP was 1.389 cGym^2. COMPARISON: None. FINDINGS: Lucent soft tissue defect overlying the cephalad aspect of the posterior tuberosity of the calcaneus in the expected site of insertion of the Achilles tendon. Small plantar calcaneal spur. No fracture. IMPRESSION: 1. Fluoroscopy utilized during orthopedic procedure at the posterior calcaneus. See procedure note fo r further detail. Reviewed, dictated and finalized at location B. IMPRESSION: 1. Fluoroscopy utilized during orthopedic procedure at the posterior calcaneus. See procedure note for further detail.
--- OUTSIDE RECORDS SUMMARY | 2025-01-02 00:25 | XMS_ITS | Clinical Summary ---
Author Organization [facility] Address [address] [place] [phone] Care Team Providers Care Food Mixer Repairer Name Role Phone Unavailable Primary Care Provider [...] INFLUENZA VACCINE (#1) 2024 04/18/2022, 2020 Insurance [employer] [facility]
--- OUTSIDE RECORDS SUMMARY | 2025-01-02 00:25 | XMS_ITS | Clinical Summary ---
Author Organization [facility] Address [address] [place] [address] Care Team Providers Care Professor Of Visual Arts Name Role Phone Isela Villaseñor PA-C Primary Care Provider [phone] Allergies No known active allergies Medications losartan (COZAAR) 50 MG tablet Take 1 tablet (50 mg total) by mouth daily. Active levonorgestrel (MIRENA) 20 MCG/DAY IUD Mirena (52 MG) IUDUSE DIRECTED. ctive Active Active Problems Problem Noted Date Diagnosed Date Lumbar radiculopathy, right 06/28/2024 Low back pain 06/28/2024 Pain of right leg 06/28/2024 Tightness of leg fascia 06/28/2024 Immunizations Immunization Administration Dates Next Due Influenza Adult (Generic) 04/18/2022,04/20/2021 PFIZER COVID-19 (ORIGINAL FO RMULATION, PURPLE CAP) mRNA, LNP-S, PF, 30 MCG/0.3 ML DOSE 06/30/2021,10/18/2020,09/26/2020 Social History Tobacco Use Types Packs/Day Years Used Date Smoking Tobacco: Never Smokeless Tobacco: Never Tobacco Cessation:Counseling Given: No Alcohol Use Standard Drinks/Week Comments Not Currently 0 (1 standard drink = 0.6 oz pur e alcohol) PHQ-2 Answer Date Recorded Patient Health Questionnaire-2 Score 0 01/30/2023 Comments No Sex and Gender Information Value Date Recorded Sex Assigned at Not on file Legal Sex Female 6:52 PM CDT Gender Identity Not on file Sexual Orientation Not on file Last Filed Vital Signs Vital Sign Reading Time Taken Comments Blood Pressure 151/75 01/30/2023 10:16 AM CDT Pulse 53 01/30/2023 10:09 AM CDT Temperature 36.7 C (98.1 F) 01/30/2023 10:09 AM CDT Respiratory Rate 12 01/30/2023 10:09 AM CDT Oxygen Saturation 100% 01/30/2023 10:09 AM CDT Inhaled Oxygen Concentration - - Weight 101.2 kg (223 lb) 01/30/2023 10:09 AM CDT Height 175.3 cm (5' 9) 01/30/2023 10:09 AM CDT Body Mass Index 32.93 01/30/2023 10:09 AM CDT Plan of Treatment Health Maintenance Due Date Last Done Comments Cervical Cancer Screening Pa p Smear (Age 30 to 64) Every 3 Years 1976 Colorectal Cancer Screening Colonoscopy (10 Years) 1976 Annual Physical 1979 Hepatitis C 1994 DTaP, Tdap and Td Vaccines ( 1 - Tdap) 1995 Hepatitis B Vaccines (1 of 3 - 19+ 3-dose series) 1995 Cervical Cancer Screening Pa p with HPV Testing (Age 30 to 64) Every 5 Years 2006 Cervical Cancer Screening wi HPV 2006 Mammogram Screening 2016 COVID-19 Vaccine (2023-2 5 season) 2024 06/30/2021, 10/18/2020, 09/26/2020 PHQ-2 (Physician [facility]) 07/16/2024 01/30/2023 Meningococcal B Vaccine Aged Out No l onger eligible based on patient's age to complete this topic Meningococcal Vaccine Aged Out No tobias viktoria eligible based on patient's age to complete this topic Pneumococcal Vaccine: Pediatrics (0 to 5 Years) and At-Risk Patients (6 to 49 Years) Aged Out No longer eligible b ased on patient's age to complete this topic RSV Immunizations Under 20 Months Aged Out No longer eligible b ased on patient's age to complete this topic Insurance [facility] Member Subscriber Plan / Payer (Ef fective 2021-Present) Name:Nicolasa Alva Relation to Subscriber:Self Name:Nicolasa Alva Payer ID:Not on file Type:Not on file Address: [address] Care Teams Professor Of Visual Arts Relationship Specialty Start Date End Date Isela Villaseñor PA-C [address] [place] [address] [address] [place] [address] PCP - General PHYSICIAN TV TECHNICIAN 06/24/24
--- OUTSIDE RECORDS SUMMARY | 2025-01-02 00:25 | XMS_ITS | Encounter Summary ---
Author Organization [facility] Address [address] [facility] [place] [address] Care Team Providers Care Group Reservations Coordinator Name Role Phone Isela Villaseñor Primary Care Provider [phone] Encounter Details Date Type Department Care Team (Late st Contact Info) Description 12/23/[address] [facility] [address] [facility] Third Level [phone] Avery Salas MD [address] [place] [address] Social History Tobacco Use Types [...] AM CDT) Case Report Dermatopathology Report Case: [id number] Authorizing Provider: Avery Salas MD Collected: 12/22/2021 03:33 AM Ordering Location: [facility] Received: 12/23/2021 07:33 AM Pathologist: Abigail Comer MD Specimen: Skin, left mid back 2 11:16 AM CDT DERMATOPATHOLOGY LABORATORY Final Diagnosis Specimen A. SKIN, left mid back: INTRADERMAL MELANOCYTIC NEVUS (D22.5) 2 11:16 AM CDT DERMATOPATHOLOGY LABORATORY at 1116 CDT Clinical History Irritated Nevus vs. Other Path# [id number] 2 11:16 AM CDT DERMATOPATHOLOGY LABORATORY Gross Description Specimen A: Received is one formalin filled container labeled with the patient's name and designated left mid back. The specimen consists of a shave biopsy measuring [id number]. Jar 0. 2 11:16 AM CDT DERMATOPATHOLOGY [...] characteristic determined by the Dermatopathology Laboratory at [facility], directed by Dr. Prosper Toney. These tests need not be, and therefore are not, approved by the [place] Food and Drug Administration. The tests are used for clinical purposes. Billing Codes Specimen Charges Stain Charges 79409 1 2 11:16 AM CDT DERMATOPATHOLOGY LABORATORY Embedded Images 2 11:16 AM CDT DERMATOPATHOLOGY LABORATORY Pathology/Cytolo gy TISSUE SPECIMEN FROM SKIN / Unknown 12/22/2021 3:33 AM CDT 12/23/2021 7:33 AM CDT us Avery Salas MD LAB - PATHOLOGY/CYTOLOGY ORDER MIRIAN Final Result DERMATOPATHOLOGY LABORATORY [facility] - Department of Dermatology [facility] Medicine [address] [place] [address], [address] [phone] documented in this encounter Visit Diagnoses Not on filedocumented in this encounter Care Teams Group Reservations Coordinator Relationship Specialty Start Date End Date Isela Villaseñor PA [address] [place] [phone] PCP - General 11/03/22 documented as of this encounter
--- OUTSIDE RECORDS SUMMARY | 2025-01-02 00:25 | XMS_ITS | Clinical Summary ---
Author Organization [facility] Address [address] [place] [address] Care Team Providers Care Aquatic Performer Name Role Phone Isela Villaseñor Primary Care Provider [phone] Allergies No known active allergies Medications losartan [...] on file Legal Sex Female 9:47 AM PHOTO STUDIO ASSISTANT Gender Identity Not on file Sexual Orientation Not on file Obstetrics History Last Filed Vital Signs Vital Sign Reading Time Taken Comments Blood Pressure - - Pulse - - Temperature - - Respiratory Rate - - Oxygen Saturation - - Inhaled Oxygen Concentration - - Weight 94.3 kg (208 lb) 06/22/2022 7:55 AM PHOTO STUDIO ASSISTANT Height 175.3 cm (5' 9) 06/22/2022 7:55 AM PHOTO STUDIO ASSISTANT Body Mass Index 30.72 06/22/2022 7:55 AM PHOTO STUDIO ASSISTANT Plan of Treatment Health Maintenance Due Date [...] patient's age to complete this topic Insurance [employer] Care Teams Aquatic Performer Relationship Specialty Start Date End Date Isela Villaseñor PA [address] [place] [phone] PCP - General Family Practice 06/14/22
--- OUTSIDE RECORDS SUMMARY | 2025-01-02 00:25 | XMS_ITS | Encounter Summary ---
Author Organization [facility] Address [facility] [place] [address] Care Team Providers Care Bakery Sales Clerk Name Role Phone Isela Villaseñor PA-C Primary Care Provider [phone] Isela Villaseñor PA-C Primary Care Provider [phone] Encounter Details Date Type Department Care Team (Late st Contact Info) Description 01/30/2023 INXPO Message Enc [facility] Medical Group Family & Internal Medicine [facility] [id number] [place] [phone] Ashlee Rocha, ENGAGEMENT QUALITY CONSULTANT [address] [address] Medication Social History Tobacco Use Types Packs/Day Years Used Date Smoking Tobacco: Never Smokeless Tobacco: Never Alcohol Use Standard Drinks/Week Comments Not Currently 0 (1 standard drink = 0.6 oz pur e alcohol) PHQ-2 Answer Date Recorded Patient Health Questionnaire-2 Score 0 01/30/2023 Comments No Sex and Gender Information Value Date Recorded Sex Assigned at Not on file Legal Sex Female 6:52 PM CDT Gender Identity Not on file Sexual Orientation Not on file documented as of this encounter Functional Status * Over the past 2 weeks, how often have you been bothered by any of the following problems? Question Answer Date of Assessment Author Status Little interest or pleasure in doing things Not at all 01/30/2023 10:16 AM CDT Merna Mensah MA Active Feeling down, depressed, or hopeless Not at all 01/30/2023 10:16 AM Merna Dunlap MA Active Patient Health Questionnaire-2 Score 0 01/30/2023 10:16 AM Merna Dunlap MA Ac tive documented as of this encounter Plan of Treatment Not on file documented as of this encounter Visit Diagnoses Not on filedocumented in this encounter Care Teams Bakery Sales Clerk Relationship Specialty Start Date End Date Isela Villaseñor PA-C [address] [place] [address] [address] [place] [address] PCP - General PHYSICIAN LINSEED OIL TEMPERER 01/30/23 03/02/24 Isela Villaseñor PA-C Count includes the [facility] [place] [address] PCP - General PHYSICIAN LINSEED OIL TEMPERER 06/24/24 documented as of this encounter
--- OUTSIDE RECORDS SUMMARY | 2025-01-02 00:25 | XMS_ITS | Clinical Summary ---
Author Organization [facility] Address [address] [place] [address] Care Team Providers Care Crew Member Name Role Phone Isela Villaseñor Primary Care Provider Source Comments [facility],non-owned Affiliates and Associated Physician Practices is amultiple site organization consisting of ambulatory clinics and hospital sitesin [place], [place], [place] and [place]. This disclosure is being madepursuant to the Care Everywhere program and may not contain all information available regarding this patient. Last updated 18.[facility] Social History Tobacco Use Types Packs/Day Years [...] to complete this topic Insurance Care Teams Crew Member Relationship Specialty Start Date End Date Isela Villaseñor PA [address] [place] [phone] PCP - General 11/03/22
--- OUTSIDE RECORDS SUMMARY | 2025-01-02 00:25 | XMS_ITS | Referral Summary ---
Author Organization [facility] Address [facility] [place] [address] Care Team Providers Care Curtain Stitcher Name Role Phone Isela Villaseñor Primary Care Provider [phone] Allergies No known active allergies Medications losartan [...] on file Legal Sex Female 9:47 AM SR. MEDIA MANAGER Gender Identity Not on file Sexual Orientation Not on file Last Filed Vital Signs Vital Sign Reading Time Taken Comments Blood Pressure - - Pulse - - Temperature - - Respiratory Rate - - Oxygen Saturation - - Inhaled Oxygen Concentration - - Weight 94.3 kg (208 lb) 06/22/2022 7:55 AM SR. MEDIA MANAGER Height 175.3 cm (5' 9) 06/22/2022 7:55 AM SR. MEDIA MANAGER Body Mass Index 30.72 06/22/2022 7:55 AM SR. MEDIA MANAGER Plan of Treatment Not on file Insurance [employer] ACCESS CHOICE AN[employer]M ACCESS CHOICE Care Teams Curtain Stitcher Relationship Specialty Start Date End Date Isela Villaseñor PA [address] [place] [phone] PCP - General Family Practice 06/14/22
--- NOTE | 2025-01-02 07:06 | WPDHPUPDATE1 ---
History and Physical Update Update Date/Time: 01/02/25 07:06 History and Physical has been reviewed, including an updated exam of the patient. There are NO changes in the patient's condition. Risks, benefits, and alternatives have been discussed and questions answered. Patient agrees to proceed with procedure.
[2025-01-02] MEDS: LACTATED RINGERS 1,000 ML 30 ML IV CONT ×2 (10:30→13:34)
--- NOTE | 2025-01-02 10:43 | WPDANESEPPF ---
Anes - Initial Pre Proc Eval Procedure: Operation Date: 01/02/25 11:30 Proposed Procedures p Retrocalcaneal Exostectomy with Detachment and Re-attachment of Achilles Tendon Left Foot, Tendo-Achilles Lengthening Left Leg - Vitor Sanchez Jr., DPM Date/Time: 01/02/25 10:43 Surgeon: Vitor Sanchez Jr., DPM Pre Op Diagnosis: Achilles Tendinosis Left Foot Patient Data Age: 49 Gender: F Height: 1.75 m Weight: 102.3 kg Allergies Allergy/AdvReac Type Severity Reaction Status Date / Time No Known Allergies Allergy Mild Verified 01/02/25 11:03 Home Medications ?Medication ?Instructions ?Recorded ?Confirmed ?Type spironolactone 100 mg tablet 100 mg PO DAILY 05/08/24 12/30/24 History cholecalciferol (vitamin D3) 25 1,000 unit PO DAILY 12/30/24 01/02/25 History mcg (1,000 unit) capsule (Vitamin D3) estradiol 0.05 mg/24 hr semiweekly 1 patch topical .bi-weekly 12/30/24 12/30/24 History transdermal patch (Lyllana) lactobacillus combo no.11 15 1 cap PO DAILY 12/30/24 12/30/24 History billion cell sprinkle capsule (Probiotic) magnesium citrate 100 mg capsule 100 mg PO DAILY 12/30/24 12/30/24 History semaglutide (weight loss) 0.36 ml IM .bi-weekly 12/30/24 12/30/24 History Patient hx anesthesia problems: none Family hx anesthesia problems: none Results Review: All pre-operative results and documents have been reviewed as part of the pre-operative evaluation. [facility] Past Medical History Medical History (Updated 05/08/24 @ 10:33 by Isela Villaseñor PA-C) Tailbone injury Knee pain, right Morbid (severe) obesity due to excess calories Essential (primary) hypertension Surgical History Surgical History (Updated 05/08/24 @ 10:33 by Isela Villaseñor PA-C) No pertinent past surgical history Family History Family History Father Hypertension Mother Hypertension Family history of diabetes mellitus in first degree relative Sibling Hypertension Social History Social History Social History: 05/05/24 Patient declined SDOH Smoking status: Never smoker Alcohol intake: never Alcohol use details: rarely Substance use: never Substance use type: does not use Living arrangements: with family Occupation/Education: occupation Gender identity (if verbalized by the patient): Female Sexual Orientation (if Verbalized by the Patient): Straight or Heterosexual Spiritual care concerns: No Anes - Eval Final PreProcedure Day of Procedure 01/02/25 10:43 Patient weight: obese Heart: regular rate and rhythm Lungs: clear to auscultation Airway: Mallampati scale class II Neurological: alert and oriented Last oral intake: >/= 8 hours ASA classification: II Emergent: no Anesthetic plan: proceed Anesthesia type and monitoring: general ETT and standard monitoring Results Review: All pre-operative results and documents have been reviewed as part of the pre-operative evaluation. Informed Consent: The patient's anesthetic plan and its attendant risks and benefits were discussed with the patient/family/POA. Questions were solicited and answers provided to the satisfaction of the patient/family/POA.
[2025-01-02] MEDS: BUPivacaine HCL 0.5% 10 ML AMP INFILTRATE (12:07)
[2025-01-02] MEDS: ceFAZolin 2 GM/D5W 50 ML 2 GM/50 ML BAG IVPB (12:07)
[2025-01-02] MEDS: LIDOCAINE 2% LOCAL INJ 20 ML VIAL 10 ML INFILTRATE (12:07)
--- NOTE | 2025-01-02 13:27 | W.PM.PROC2 ---
Procedure Note - Detailed Date of Procedure 01/02/25 Pre-op Diagnosis 1. Achilles Insertional Calcific Tendinosis Left Foot 2. Gastroc Soleus Equinus left leg Post-op Diagnosis Same Procedure Performed 1 .Retrocalcaneal exostectomy with detachment and reattachment of the Achilles tendon left foot 2. Tendo Achilles Lengthening left left Surgeon iVtor Sanchez Jr., DPM Anesthesia General and Local Indications Painful retrocalcaneal region left foot Findings Large retrocalceanel spur with thickening of the distal Achilles tendon Description of Procedure Under mild sedation, the patient was brought to the operating room, placed on the operating table in the prone position. A pneumatic thigh tourniquet was placed about the patient's left thigh . Following general anesthesia I performed a local anesthetic nerve block with 20cc's of a one to one mix of 2% Lidocaine plain and 0.5% Marcaine plane with a common peroneal nerve block. The left foot and distal leg was then scrubbed, prepped, and draped in the usual aseptic manner. An Esmarch bandage was then used to examine the patient's right foot and pneumatic thigh tourniquet was then inflated. Surgery began in the following manner. Attention was directed to the posterior aspect of left leg where a curvilinear J shaped incision was made lateral to the retrocalcaneal exostosis which was palpable. The incision was made starting 10 cm above the insertion of the Achilles and extending 3cm inferior and medial to the calcaneus. The incision was continued deep down through the subcutaneous tissues using sharp and blunt dissection. All bleeders were cauterized as necessary. At this point dissection was continued exposing the the insertional component of the Achilles Tendon. There was noted hypertrophy to the distal tendon. A midsubstance linear Achilles tendon incision was made exposing a large intrasubstance calcified region of bone which was carefully excised and sent for gross and histopathology. There was a large posterior and superior exostosis noted which was resected with an osteotome and mallet and feathered smooth with a sagittal saw blade. All rough edges were smoothed with a power fausto and bone rasp. The area was flushed with copious amounts of sterile saline. Fluoroscopy was used to make sure that enough of the retrocalcaneal region was resected approximately 3m from superior to inferior and medial to lateral and 2cm from posterior to anterior. Next, utilizing standard principle and techniques the Arthrex SpeedBridge system was used to reattach the debulked Achilles tendon to the posterior calcaneus. Comparable tension to the contralateral foot was maintained. Adequate stable reattachment was noted. I flushed the wound site with copious amounts of sterile saline. Next, the paratenon and overlying subcutaneous tissue was reapproximated with 3-0 Vicryl and 4-0 Vicryl correspondingly. Next, the skin was reapproximated and coapted with 4-0 Monocryl in running subcuticular suture fashion technique. Upon completion of the procedure, the incision was dressed with Adaptic, 4 x 4's, Kerlix, and Dayne Wrap. The pneumatic thigh tourniquet was then deflated and a prompt hyperemic response noted to all digits of the left foot. A posterior splint was then applied. The patient did very well with the procedure and the anesthesia. She was transferred to the recovery room with vital signs stable and vascular status intact to all toes of the let foot. Following a period of postoperative monitoring, the patient will be discharged home on the following written and oral postoperative instructions: 1. Keep the dressing clean, dry, and intact. Use a cast protector bag with showers. 2. The patient to be strictly nonweightbearing with a knee scooter. 3. The patient should ice and elevate the right foot when at rest. 4. The patient to contact Dr. Sanchez for all postop care and if any problems arise. 5. Prescriptions were written for Percocet 5/325 dispensed 40 to be taken 1 p.o. q.4 to 6 hours as needed for severe pain. Implants Arthrex Speedbridge Achilles Tendon repair system Estimated Blood Loss 1 Drains No Packing No Pathology None sent Complications No immediate complications Condition Stable Disposition Same day
[2025-01-02] MEDS: fentaNYL CITRATE INJ (*CRX) 100 MCG/2 ML VIAL 25 MCG IV PUSH ×4 (13:59→14:20)
[2025-01-02] MEDS: ONDANSETRON INJ 4 MG/2 ML VIAL IV PUSH (14:52)
[2025-01-02] MEDS: oxyCODONE HCL (*CRX) 5 MG TAB IR PO (15:51)
== END 2025-01-02 16:25 | disposition home or self-care (01) ==
PROVIDERS: PCP Physician Assistant Medical; Visit Provider Podiatrist Foot & Ankle Surgery
PROC: (CPT 28118; principal; 2025-01-02 11:30)
DX: M76.62 Achilles tendinitis, left leg (principal); M77.32 Calcaneal spur, left foot; M67.874 Other specified disorders of tendon, left ankle and foot; I10 Essential (primary) hypertension; E66.9 Obesity, unspecified; Z68.33 Body mass index [BMI] 33.0-33.9, adult; Z79.899 Other long term (current) drug therapy; Z79.85 Long-term (current) use of injectable non-insulin antidiabetic drugs
CPT/HCPCS: 28118; 27685; 99199; A9270; C1713; J0690; J1100; J2003; J2250; J2405; J2704; J3010; J7120

== ENCOUNTER 2025-06-05 01:45 | Day surgery (SDC) | payer BC, SELFPAY ==
--- NOTE | 2025-05-28 09:56 | PC.NURSE ---
[facility] has started construction of its new state of the art ER which will open Spring 2026. With this, we anticipate parking may be a challenge for some our surgical patients and families. Parking spaces are limited but are available for all Surgical, obstetrics, and ER patients sharing this lot. If you arrive and find you are having a hard time finding a parking space, please note that we understand the challenges, please drive around the hospital and park near Hospital Entrance 1. When you enter this entrance, you can ask a volunteer to direct or take you back to the surgical waiting area to check in. We appreciate everyone?s understanding of these expected challenges while we build for your future. Report to the Outpatient Waiting Room, entrance under the green pavilion located off [address], at time _1100_ on date _[id number]_. Planned Procedure Time: _1pm_.? Time changes happen often and if your time is changed the preop area will call you the afternoon before. - You and your visitor will be asked to self-screen and do not enter if you have any COVID symptoms. Please call surgeon if you need to reschedule. - A mask is optional within the hospital at this time. Patients may have clear liquids (water, carbonated beverages, clear teas, apple juice) until 3 hours prior to surgery with a maximum of 20 ounces. - No food from midnight until time of surgery and no smoking, or chewing tobacco (or any form of nicotine). No chewing gum, candy or mints. Take only the following medications with a SIP of water on the morning of surgery: ___Carvidilol____ DO NOT STOP ANY OF YOUR OTHER PRESCRIPTION MEDICATIONS PRIOR TO SURGERY EXCEPT THE FOLLOWING Hold all vitamins and supplements for 3 days per anesthesiologist. Medications to discontinue per physician Date to take last dose Please no make-up, nail maltese, hairspray, perfume, deodorant, or body powder the day of surgery.? No jewelry (including any body piercings) or valuables the day of surgery, leave them at home.? Please take a shower or bath the night before, or the morning of, surgery with an antibacterial soap.? Wear comfortable, loose fitting clothing.? - Jewelry must be removed prior to entering the operating room.? Rings and piercings that are not removed may be cut off. - The hospital will not accept responsibility for valuables.? - Please leave all valuables, including medications, at home the day of surgery. If you are going home after surgery, a licensed stock driver must drive you home.? - NO public transportation without another adult if you receive anesthesia. - We recommend that an adult stay with you for 24 hours following discharge. - We also recommend that you do not drive, make important decision, drink alcoholic beverages, or take any drugs that were not prescribed by your health care provider for at least 24 hours after your discharge time. Follow any additional instructions given to you from your surgeon. Telephone instructions given to _Henribi__and asked if any additional questions and then verbalized understanding. Patient advised to call surgeon office or pre surgery nurse liaison [phone] if any additional questions.
[2025-05-28 10:06] VITALS: BMI 33.7
[2025-06-05] VITALS (10 sets, daily range): BP systolic 139–194; BP diastolic 68–94; PULSE 57–87; RESP 12–16; TEMP 36.3–36.4; O2SAT 99–100; BMI 33.5
--- NOTE | ~2025-06-05 | XR_ITS ---
EXAMINATION: XR surgery orthopedic DATE: 06/05/2025 14:05 INDICATION: Right foot surgery TECHNIQUE: Single fluoroscopic image of the right heel was obtained procedure performed by Dr. Sanchez. Radiologist was not present for the imaging or procedure. The amount of fluoroscopy time used during this procedure was 0.1 minutes. The dose area product was 0.484 cGcm^2. COMPARISON: None. FINDINGS: Images demonstrate a metallic probe projecting along the margin of the calcaneal tuberosity with overlying lucent surgical soft tissue defect. IMPRESSION: 1. Fluoroscopy utilized during surgical procedure at the right heel. See procedure note for further detail. Reviewed, dictated and finalized at location A. OR QA ENGINEER IMPRESSION: 1. Fluoroscopy utilized during surgical procedure at the right heel. See proced ure note for further detail.
--- NOTE | 2025-06-05 07:01 | WPDHPUPDATE1 ---
History and Physical Update Update Date/Time: 06/05/25 07:01 History and Physical has been reviewed, including an updated exam of the patient. There are NO changes in the patient's condition. Risks, benefits, and alternatives have been discussed and questions answered. Patient agrees to proceed with procedure.
[2025-06-05] MEDS: LACTATED RINGERS 1,000 ML 30 ML IV CONT ×2 (11:24→14:42)
--- NOTE | 2025-06-05 12:48 | WPDANESEPPF ---
Anes - Initial Pre Proc Eval Procedure: Operation Date: 06/05/25 13:00 Proposed Procedures p Retrocalcaneal Exostectomy with Detachment and Reattachment of Achilles Tendon Right Foot, Achilles Tendon Lengthening Right Leg - Vitor Sanchez Jr., DPM Date/Time: 06/05/25 12:48 Surgeon: Vitor Sanchez Jr., DPM Pre Op Diagnosis: Achilles Iinsertional calcific Foot tendinosis rt Patient Data Age: 49 Gender: F Height: 1.75 m Weight: 103.1 kg Last Vital Signs Temp 36.4 C L 06/05/25 11:00 Pulse 60 06/05/25 11:00 Resp 16 06/05/25 11:00 BP 139/68 06/05/25 11:00 Pulse Ox 100 06/05/25 11:00 Allergies Allergy/AdvReac Type Severity Reaction Status Date / Time No Known Allergies Allergy Mild Verified 06/05/25 12:12 Home Medications ?Medication ?Instructions ?Recorded ?Confirmed ?Type spironolactone 100 mg tablet 100 mg PO DAILY 05/08/24 05/28/25 History cholecalciferol (vitamin D3) 25 1,000 unit PO DAILY 12/30/24 06/05/25 History mcg (1,000 unit) capsule (Vitamin D3) estradiol 0.05 mg/24 hr semiweekly 1 patch topical .bi-weekly 12/30/24 05/28/25 History transdermal patch (Lyllana) lactobacillus combo no.11 15 1 cap PO DAILY 12/30/24 05/28/25 History billion cell sprinkle capsule (Probiotic) magnesium citrate 100 mg capsule 100 mg PO DAILY 12/30/24 05/28/25 History semaglutide (weight loss) 0.36 ml IM .bi-weekly 12/30/24 06/05/25 History carvedilol 12.5 mg tablet 12.5 mg PO Q12H #180 tabs 03/12/25 06/05/25 Rx losartan 25 mg tablet 25 mg PO DAILY #90 tabs 04/14/25 05/28/25 Rx rivaroxaban 10 mg tablet (Xarelto) 10 mg PO DAILY #14 tabs 06/03/25 Rx Patient hx anesthesia problems: post op nausea/vomiting Family hx anesthesia problems: none Results Review: All pre-operative results and documents have been reviewed as part of the pre-operative evaluation. [facility] Past Medical History Medical History Tailbone injury Knee pain, right Morbid (severe) obesity due to excess calories Essential (primary) hypertension Surgical History Surgical History History of foot surgery 01/02/25 Retrocalcaneal exostectomy with detachment and reattachment of the Achilles tendon left foot; left Achilles tendon Lengthening Family History Family History Father Hypertension Mother Hypertension Family history of diabetes mellitus in first degree relative Sibling Hypertension Social History Social History Social History: 02/17/25 Patient declined SDOH Smoking status: Never smoker Alcohol intake: never Alcohol use details: rarely Substance use: never Substance use type: does not use Living arrangements: with family Occupation/Education: occupation Gender identity (if verbalized by the patient): Female Sexual Orientation (if Verbalized by the Patient): Straight or Heterosexual Spiritual care concerns: No Anes - Eval Final PreProcedure Day of Procedure 06/05/25 12:48 Patient weight: obese Heart: regular rate and rhythm Lungs: clear to auscultation and normal air movement Airway: Mallampati scale class II Neurological: alert and oriented Last oral intake: >/= 8 hours ASA classification: III Emergent: no Anesthetic plan: proceed Anesthesia type and monitoring: general ETT and standard monitoring Results Review: All pre-operative results and documents have been reviewed as part of the pre-operative evaluation. Informed Consent: The patient's anesthetic plan and its attendant risks and benefits were discussed with the patient/family/POA. Questions were solicited and answers provided to the satisfaction of the patient/family/POA.
[2025-06-05] MEDS: SCOPOLAMINE 1 MG PATCH 1 PATCH TRANSDERM (12:54)
[2025-06-05] MEDS: ceFAZolin 2 GM in SODIUM CHLORIDE 0.9% IV 50 ML 100 ML IVPB (12:58)
[2025-06-05] MEDS: LIDOCAINE 2% LOCAL INJ 20 ML VIAL 10 ML INFILTRATE (13:37)
--- NOTE | 2025-06-05 14:38 | P.OP_ITS ---
Procedure Note - Detailed Date of Procedure 06/05/25 Pre-op Diagnosis 1. Achilles Insertional calcific tendinosis right foot 2. GastrocSoleus Equinus right foot Post-op Diagnosis Same Procedure Performed 1. Retrocalcaneal exostectomy with detachment and reattachment of the Achilles tendon right foot 2. Achilles Tendon Lengthening right leg Surgeon Vitor Sanchez Jr., DPM Anesthesia General and Local Indications Painful retrocalceal region of the right foot with a contracture of the Achilles Tendon Description of Procedure Under mild sedation, the patient was brought to the operating room, placed on the operating table in the prone position. A pneumatic thigh tourniquet was placed about the patient's right thigh . Following general anesthesia I performed a local anesthetic nerve block with 20cc's of 1:1 Mix of 2% Lidocaine plain and 0.5% Marcaine plain along with a common peroneal nerve nerve block. The right foot and distal leg was then scrubbed, prepped, and draped in the usual aseptic manner. An Esmarch bandage was then used to examine the patient's right foot and pneumatic thigh tourniquet was then inflated. Surgery began in the following manner. Attention was directed to the posterior aspect of right leg where a curvilinear J shaped incision was made lateral to the retrocalcaneal exostosis which was palpable. The incision was made starting 6cm above the insertion of the Achilles and extending 3cm inferior and medial to the calcaneus. The incision was continued deep down through the subcutaneous tissues using sharp and blunt dissection. All bleeders were cauterized as necessary. At this point dissection was continued exposing the the insertional component of the Achilles Tendon. There was noted hypertrophy to the distal tendon. A midsubstance linear Achilles tendon incision was made exposing a large intrasubstance calcified region of bone which was carefully excised and discarded. There was a large posterior and superior exostosis noted which was resected with an osteotome and mallet and feathered smooth with a sagittal saw blade. All rough edges were smoothed with a power fausto and bone rasp. The area was flushed with copious amounts of sterile saline. Fluoroscopy was used to make sure that enough of the retrocalcaneal region was resected approximately 3m from superior to inferior and medial to lateral and 2cm from posterior to anterior. Next, utilizing standard principle and techniques the Arthrex SpeedBridge system was used to reattach the debulked Achilles tendon to the posterior calcaneus. Comparable tension to the contralateral foot was maintained. Adequate stable reattachment was noted. I flushed the wound site with copious amounts of sterile saline. A triple hemisection Lengthening was performed starting 5cm above the Insertion of the Achilles tendon and 2cm intervals extending proximally. At this point 90 degrees of dorsiflexion was Achieved. Next, the paratenon and overlying subcutaneous tissue was reapproximated with 3- 0 Vicryl and 4-0 Vicryl correspondingly. Next, the skin was reapproximated and coapted with 4-0 Monocryl in running subcuticular suture fashion technique. Upon completion of the procedure, the incision was dressed with Adaptic, 4 x 4's, Kerlix, and Dayne Wrap. The pneumatic thigh tourniquet was then deflated and a prompt hyperemic response noted to all digits of the right foot. A posterior splint was then applied. The patient did very well with the procedure and the anesthesia. She was transferred to the recovery room with vital signs stable and vascular status intact to all toes of the right foot. Following a period of postoperative monitoring, the patient will be discharged home on the following written and oral postoperative instructions: 1. Keep the dressing clean, dry, and intact. Use a cast protector bag with showers. 2. The patient to be strictly nonweightbearing with a knee scooter. 3. The patient should ice and elevate the right foot when at rest. 4. The patient to contact Dr. Sanchez for all postop care and if any problems arise. 5. Prescriptions were written for Percocet 5/325 dispensed 40 to be taken 1 p.o. q.4 to 6 hours as needed for severe pain. Implants Arthrex Speed Bridge System Estimated Blood Loss 1 Drains No Packing No Pathology None sent Complications No immediate complications Condition Stable Disposition Same day
[2025-06-05] MEDS: fentaNYL CITRATE INJ (*CRX) 100 MCG/2 ML VIAL 25 MCG IV PUSH ×8 (14:53→15:30)
[2025-06-05] MEDS: ONDANSETRON INJ 4 MG/2 ML VIAL IV PUSH (15:41)
[2025-06-05] MEDS: oxyCODONE HCL (*CRX) 5 MG TAB IR PO (17:18)
[2025-06-08 11:46] LABS: BEDSIDEPREGUCG Negative (Negative)
== END 2025-06-05 17:45 | disposition home or self-care (01) ==
PROVIDERS: PCP Physician Assistant Medical; Visit Provider Podiatrist Foot & Ankle Surgery
PROC: (CPT 28750; principal; 2025-06-05 13:00)
DX: M76.61 Achilles tendinitis, right leg (principal); M24.571 Contracture, right ankle; M77.31 Calcaneal spur, right foot; I10 Essential (primary) hypertension; E66.9 Obesity, unspecified; Z68.33 Body mass index [BMI] 33.0-33.9, adult; Z79.01 Long term (current) use of anticoagulants; Z98.890 Other specified postprocedural states
CPT/HCPCS: 28118; 27685; 99199; J0690; A9270; C1713; J0360; J1100; J1200; J2003; J2250; J2405; J2704; J3010; J7120